=== PATIENT | male | born 1955 | race African-American/Black ===

== ENCOUNTER 2016-12-19 20:19 | Inpatient (IN) | payer MEDICAID, OTHER ==
[~2016-12-19] VITALS: Ht 170.2 cm; Wt 116.4 kg
[~2016-12-19 20:19] MED LIST: AMLO5TAB66 PO; ASPI325T; ATOR40TA28 PO; CALC667C PO; CARV25TA32 PO; CLON1PAT3 TD; ENAL20TA PO; GEMF600T3 PO; PIOG45TA PO; VALS80TA2 PO
[2016-12-19] MEDS ORDERED: SIMV-260 PO (20:28)
[2016-12-19] MEDS ORDERED: DSS100 PO (20:28)
[2016-12-19] MEDS ORDERED: LEVO100 PO (20:28)
[2016-12-19 20:57] LABS: GLUCOSE,POINT OF CARE 168 MG/DL (70-110)
[2016-12-19 23:20] LABS: BASOPHILS % (AUTO) 0.2 % (0.0-2.0); EOSINOPHILS % (AUTO) 1.4 % (1.0-6.0); HEMATOCRIT 30.3 % (41-53); HEMOGLOBIN 9.5 g/dL (13.5-17.5); LYMPHOCYTES # (AUTO) 1.5 K/uL (1.0-4.8); LYMPHOCYTES % (AUTO) 17.2 % (22.0-44.0); MEAN CORPUSCULAR HEMOGLOBIN 27.1 pg (26.0-34.0); MEAN CORPUSCULAR HGB CONC 31.2 G/dL (31.0-37.0); MEAN CORPUSCULAR VOLUME 87 fL (80-100); MONOCYTES # (AUTO) 0.9 K/uL (0.1-1.0); MONOCYTES % (AUTO) 9.6 % (2.0-9.0); NEUTROPHILS # (AUTO) 6.4 K/uL (1.8-7.7); NEUTROPHILS % (AUTO) 71.6 % (40.0-70.0); PLATELET COUNT (AUTO) 188 K/uL (150-450); RED CELL DISTRIBUTION WIDTH 14.2 % (11.5-14.5); WHITE BLOOD COUNT (AUTO) 8.9 K/uL (4.5-11.0)
[2016-12-19 23:30] LABS: INR 1.1 (0.9-1.1); PROTHROMBIN TIME 11.2 SEC (9.4-11.6)
[2016-12-19 23:31] LABS: CALCIUM, TOTAL 9.9 mg/dL (8.8-10.5); CREATININE 2.13 mg/dL (0.60-1.30)
[2016-12-19 23:37] LABS: ALBUMIN 3.2 g/dL (3.4-5.0); BILIRUBIN,TOTAL 0.4 mg/dL (0.1-1.0); TOTAL PROTEIN, SERUM 7.5 g/dL (6.4-8.2)
[2016-12-20] MEDS ORDERED: HYDROCODONE/ACETAMINOPHEN 5-325 MG TABLET PO ONE (01:00)
[2016-12-20] MEDS ORDERED: ONDANSETRON HCL 4 MG/2 ML VIAL IVP PRN (02:30)
[2016-12-20] MEDS ORDERED: ACETAMINOPHEN 325 MG TABLET PO PRN (02:30)
[2016-12-20] MEDS ORDERED: 0.9% SODIUM CHLORIDE 10 ML SYRINGE IVP PRN (02:30)
[2016-12-20] MEDS ORDERED: FUROSEMIDE 20 MG/2 ML VIAL IVP ONE (02:45)
[2016-12-20 03:02] LABS: GLUCOSE,POINT OF CARE 159 MG/DL (70-110)
[2016-12-20 07:22] LABS: GLUCOSE,POINT OF CARE 160 MG/DL (70-110)
[2016-12-20 08:12] VITALS: BP 133/62
[2016-12-20 10:45] VITALS: BP 134/78
[2016-12-20] MEDS ORDERED: CHOL200016 PO (12:25)
[2016-12-20] MEDS ORDERED: ENALAPRIL MALEATE 20 MG TABLET PO SCH (12:45)
[2016-12-20] MEDS ORDERED: HYDROCODONE/ACETAMINOPHEN 5-325 MG TABLET PO PRN (13:00)
[2016-12-20] MEDS ORDERED: DEXTROSE 50%-WATER 25 GM/50 ML SYRINGE IVP PRN (13:00)
[2016-12-20] MEDS: FUROSEMIDE 20 MG/2 ML VIAL IVP SCH ×2 (13:59→21:01)
[2016-12-20] MEDS: LEVOTHYROXINE SODIUM 100 MCG TABLET PO SCH (13:59)
[2016-12-20] MEDS: SIMVASTATIN 20 MG TABLET PO SCH (13:59)
[2016-12-20] MEDS: AmLODIPine BESYLATE 5 MG TABLET PO SCH ×2 (13:59→21:02)
[2016-12-20] MEDS: CARVEDILOL 25 MG TABLET PO SCH ×2 (14:00→21:02)
[2016-12-20] MEDS: PIOGLITAZONE HCL 45 MG TABLET PO SCH (14:00)
[2016-12-20] MEDS: CHOLECALCIFEROL (VIT D3) 2,000 UNITS TABLET PO SCH (14:00)
[2016-12-20 16:08] VITALS: BP 127/68
[2016-12-20] MEDS ORDERED: PNEUMOCOCCAL VACCINE POLYVALENT 0.5 ML VIAL [PPSV23] IM ONE (16:15)
[2016-12-20] MEDS: DOCUSATE SODIUM 100 MG CAPSULE PO SCH ×2 (16:49→21:02)
[2016-12-20 19:48] VITALS: BP 145/97
[2016-12-20 20:57] LABS: GLUCOSE,POINT OF CARE 148 MG/DL (70-110)
[2016-12-20] MEDS: CeFAZolin 1 GM/DEXTROSE 50 ML IV SCH (21:02)
[2016-12-20] MEDS: INSULIN ASPART 100 UNITS/ML SQ PRN (21:05)
[2016-12-20] MEDS ORDERED: SODIUM CHLORIDE 0.9% 250 ML IV ONE (21:28)
[2016-12-21] VITALS (7 sets, daily range): BP systolic 112–142; BP diastolic 59–75
[2016-12-21] MEDS: LEVOTHYROXINE SODIUM 100 MCG TABLET PO SCH (06:05)
[2016-12-21] MEDS: INSULIN ASPART 100 UNITS/ML SQ PRN ×4 (06:08→20:39)
[2016-12-21 06:11] LABS: BASOPHILS % (AUTO) 0.4 % (0.0-2.0); EOSINOPHILS % (AUTO) 2.5 % (1.0-6.0); HEMATOCRIT 31.3 % (41-53); HEMOGLOBIN 9.9 g/dL (13.5-17.5); LYMPHOCYTES # (AUTO) 1.8 K/uL (1.0-4.8); LYMPHOCYTES % (AUTO) 22.3 % (22.0-44.0); MEAN CORPUSCULAR HEMOGLOBIN 27.4 pg (26.0-34.0); MEAN CORPUSCULAR HGB CONC 31.6 G/dL (31.0-37.0); MEAN CORPUSCULAR VOLUME 87 fL (80-100); MONOCYTES # (AUTO) 0.8 K/uL (0.1-1.0); MONOCYTES % (AUTO) 10.1 % (2.0-9.0); NEUTROPHILS # (AUTO) 5.2 K/uL (1.8-7.7); NEUTROPHILS % (AUTO) 64.7 % (40.0-70.0); PLATELET COUNT (AUTO) 225 K/uL (150-450); WHITE BLOOD COUNT (AUTO) 8.1 K/uL (4.5-11.0)
[2016-12-21 06:30] LABS: HEMOGLOBIN A1C 6.9 % (4.5-6.2)
[2016-12-21 06:36] LABS: ALBUMIN 3.1 g/dL (3.4-5.0); BILIRUBIN,TOTAL 0.3 mg/dL (0.1-1.0); CALCIUM, TOTAL 10.2 mg/dL (8.8-10.5); CHOL/HDL RATIO 3.9 (4.2-7.3); CREATININE 2.53 mg/dL (0.60-1.30); MAGNESIUM 1.9 mg/dL (1.80-2.40); PHOSPHORUS 4.4 mg/dL (2.5-4.9); THYROID STIMULATING HORMONE 2.78 uIU/mL (0.36-3.74); TOTAL PROTEIN, SERUM 7.6 g/dL (6.4-8.2)
[2016-12-21 07:06] LABS: URIC ACID 10.3 mg/dL (2.6-7.2)
[2016-12-21] MEDS: CARVEDILOL 25 MG TABLET PO SCH ×2 (08:23→20:37)
[2016-12-21] MEDS: PIOGLITAZONE HCL 45 MG TABLET PO SCH (08:24)
[2016-12-21] MEDS: SIMVASTATIN 20 MG TABLET PO SCH (08:24)
[2016-12-21] MEDS: AmLODIPine BESYLATE 5 MG TABLET PO SCH ×2 (08:24→20:37)
[2016-12-21] MEDS: DOCUSATE SODIUM 100 MG CAPSULE PO SCH ×3 (08:24→20:37)
[2016-12-21] MEDS: CHOLECALCIFEROL (VIT D3) 2,000 UNITS TABLET PO SCH (08:24)
[2016-12-21 11:53] LABS: GLUCOSE COMMENT 1 Received Meds; GLUCOSE,POINT OF CARE 160 MG/DL (70-110)
[2016-12-21] MEDS: FEBUXOSTAT 40 MG TABLET PO SCH (12:43)
[2016-12-21] MEDS: COLCHICINE 0.6 MG TABLET PO SCH (12:43)
[2016-12-21 16:52] LABS: GLUCOSE,POINT OF CARE 159 MG/DL (70-110)
[2016-12-21 19:42] LABS: APPEARANCE,URINE CLEAR (CLEAR); GLUCOSE, URINE (UA) NEGATIVE (NEGATIVE); KETONES,URINE NEGATIVE (NEGATIVE); LEUKOCYTE ESTERASE ,URINE NEGATIVE (NEGATIVE); OCCULT BLOOD,URINE NEGATIVE (NEGATIVE); PROTEIN,URINE POS 1+ (NEGATIVE)
[2016-12-21 20:02] LABS: ADD UA MICROSCOPIC NO
[2016-12-21] MEDS: CeFAZolin 1 GM/DEXTROSE 50 ML IV SCH (20:37)
[2016-12-21 22:47] LABS: GLUCOSE,POINT OF CARE 143 MG/DL (70-110)
[2016-12-21 22:52] LABS: GLUCOSE COMMENT 1 Received Meds; GLUCOSE,POINT OF CARE 184 MG/DL (70-110)
[2016-12-22 04:38] VITALS: BP 125/80
[2016-12-22] MEDS: LEVOTHYROXINE SODIUM 100 MCG TABLET PO SCH (05:21)
[2016-12-22] MEDS: INSULIN ASPART 100 UNITS/ML SQ PRN ×3 (05:22→21:10)
[2016-12-22 06:07] LABS: BASOPHILS % (AUTO) 0.3 % (0.0-2.0); EOSINOPHILS % (AUTO) 3.7 % (1.0-6.0); HEMATOCRIT 31.6 % (41-53); LYMPHOCYTES # (AUTO) 1.8 K/uL (1.0-4.8); MEAN CORPUSCULAR HEMOGLOBIN 27.4 pg (26.0-34.0); MEAN CORPUSCULAR HGB CONC 31.5 G/dL (31.0-37.0); MEAN CORPUSCULAR VOLUME 87 fL (80-100); MONOCYTES # (AUTO) 0.7 K/uL (0.1-1.0); MONOCYTES % (AUTO) 11.4 % (2.0-9.0); NEUTROPHILS # (AUTO) 3.7 K/uL (1.8-7.7); NEUTROPHILS % (AUTO) 57.6 % (40.0-70.0); PLATELET COUNT (AUTO) 254 K/uL (150-450); RED BLOOD CELL COUNT(AUTO) 3.64 MIL/uL (4.50-5.90); WHITE BLOOD COUNT (AUTO) 6.5 K/uL (4.5-11.0)
[2016-12-22 06:23] LABS: CALCIUM, TOTAL 10.3 mg/dL (8.8-10.5); CREATININE 2.55 mg/dL (0.60-1.30); PHOSPHORUS 4.4 mg/dL (2.5-4.9); POTASSIUM 3.9 mmol/L (3.5-5.1)
[2016-12-22 07:04] VITALS: BP 140/79
[2016-12-22] MEDS: FEBUXOSTAT 40 MG TABLET PO SCH (09:08)
[2016-12-22] MEDS: PIOGLITAZONE HCL 45 MG TABLET PO SCH (09:09)
[2016-12-22] MEDS: AmLODIPine BESYLATE 5 MG TABLET PO SCH ×2 (09:09→21:09)
[2016-12-22] MEDS: CHOLECALCIFEROL (VIT D3) 2,000 UNITS TABLET PO SCH (09:09)
[2016-12-22] MEDS: DOCUSATE SODIUM 100 MG CAPSULE PO SCH ×3 (09:09→21:09)
[2016-12-22] MEDS: COLCHICINE 0.6 MG TABLET PO SCH (09:10)
[2016-12-22] MEDS: SIMVASTATIN 20 MG TABLET PO SCH (09:10)
[2016-12-22] MEDS: CARVEDILOL 25 MG TABLET PO SCH ×2 (09:10→21:09)
[2016-12-22 10:46] LABS: GLUCOSE COMMENT 1 Received Meds; GLUCOSE,POINT OF CARE 172 MG/DL (70-110)
[2016-12-22 11:03] VITALS: BP 130/61
[2016-12-22 15:02] VITALS: BP 123/61
[2016-12-22 19:55] VITALS: BP 140/76
[2016-12-22] MEDS: CeFAZolin 1 GM/DEXTROSE 50 ML IV SCH (21:16)
[2016-12-22 23:42] VITALS: BP 126/69
[2016-12-23 04:40] VITALS: BP 141/69
[2016-12-23] MEDS: LEVOTHYROXINE SODIUM 100 MCG TABLET PO SCH (06:31)
[2016-12-23] MEDS: INSULIN ASPART 100 UNITS/ML SQ PRN ×2 (06:32→12:40)
[2016-12-23 07:43] VITALS: BP 134/69
[2016-12-23] MEDS: COLCHICINE 0.6 MG TABLET PO SCH (08:35)
[2016-12-23] MEDS: PIOGLITAZONE HCL 45 MG TABLET PO SCH (08:35)
[2016-12-23] MEDS: DOCUSATE SODIUM 100 MG CAPSULE PO SCH (08:35)
[2016-12-23] MEDS: SIMVASTATIN 20 MG TABLET PO SCH (08:36)
[2016-12-23] MEDS: AmLODIPine BESYLATE 5 MG TABLET PO SCH (08:36)
[2016-12-23] MEDS: CHOLECALCIFEROL (VIT D3) 2,000 UNITS TABLET PO SCH (08:36)
[2016-12-23] MEDS: FEBUXOSTAT 40 MG TABLET PO SCH (08:36)
[2016-12-23 10:26] LABS: GLUCOSE COMMENT 1 Received Meds; GLUCOSE,POINT OF CARE 147 MG/DL (70-110)
[2016-12-23 10:32] LABS: GLUCOSE COMMENT 1 Received Meds; GLUCOSE,POINT OF CARE 173 MG/DL (70-110)
[2016-12-23 10:32] LABS: GLUCOSE COMMENT 1 Received Meds; GLUCOSE,POINT OF CARE 149 MG/DL (70-110)
[2016-12-23 11:38] VITALS: BP 130/55
[2016-12-23] MEDS: CARVEDILOL 25 MG TABLET PO SCH (12:39)
[2016-12-23] MEDS ORDERED: CEPH500 PO (13:56)
[2016-12-23 15:10] LABS: ALPHA-1 URINE (ELP24) 0.8 %; ALPHA-2 URINE(ELP24) 4.4 %; BETA URINE(ELP24) 8.2 %; GAMMA URINE(ELP24) 8.7 %
[2016-12-24 19:27] LABS: GLUCOSE COMMENT 1 Received Meds; GLUCOSE,POINT OF CARE 162 MG/DL (70-110)
[2016-12-27] MEDS ORDERED: CloNIDine HCL 0.3 MG/24 HOUR PATCH TD SCH (09:00)
[2016-12-28 17:12] LABS: GLUCOSE,POINT OF CARE 189 MG/DL (70-110)
== END 2016-12-23 14:30 | disposition home health service (06) | DRG 194 ==
LOC: EMS 20:21 → AHU 12-20 07:05 → 5S 12-20 11:09
PROVIDERS: ADMIT Family Medicine; ATTEND Family Medicine
DX: I13.0 Hypertensive heart and chronic kidney disease with heart failure and stage 1 through stage 4 chronic kidney disease, or unspecified chronic kidney disease (principal); N18.4 Chronic kidney disease, stage 4 (severe); I42.9 Cardiomyopathy, unspecified; E11.21 Type 2 diabetes mellitus with diabetic nephropathy; Z68.41 Body mass index [BMI] 40.0-44.9, adult; I50.43 Acute on chronic combined systolic (congestive) and diastolic (congestive) heart failure; E11.22 Type 2 diabetes mellitus with diabetic chronic kidney disease; E66.01 Morbid (severe) obesity due to excess calories; E03.9 Hypothyroidism, unspecified; E78.5 Hyperlipidemia, unspecified; D64.9 Anemia, unspecified; Z79.899 Other long term (current) drug therapy; Z91.19 Patient's noncompliance with other medical treatment and regimen; Z87.442 Personal history of urinary calculi
CPT/HCPCS: 81050; 82575; 82962; 83036; 83735; 83970; 84100; 84156; 84166; 84300; 84443; 84540; 84550; 87040; 93005; 93306; 93971; 96374; 97116; 97161; 97530; 99285; J0690; J1940; J7050